=== PATIENT | female | born 1955 | race Caucasian/White ===

== ENCOUNTER 2018-05-21 16:08 | Emergency (ER) | payer OTHER ==
[2018-05-21] MEDS ORDERED: CYCLOBENZAPRINE HCL 10 MG TABLET (FP) PO ONE (16:16)
[2018-05-21] MEDS ORDERED: KETOROLAC TROMETHAMINE 60 MG/2 ML VIAL IM ONE (16:16)
[2018-05-21 16:19] VITALS: BP 115/82; PULSE 118; TEMP 97.8; BMI 21.8
[2018-05-21] MEDS ORDERED: CYCLOBENZAPRINE HCL 10 MG TABLET (FP) ONE (16:19)
[2018-05-21] MEDS ORDERED: KETOROLAC TROMETHAMINE 60 MG/2 ML VIAL ONE (16:19)
--- NOTE | 2018-05-21 16:24 | PDOC ---
History of Present Illness - General Chief Complaint: Back Pain Stated Complaint: SCIATICA Time Seen by Provider: 05/21/18 16:11 History Source: Patient Exam Limitations: No Limitations - History of Present Illness Initial Comments: 05/21/18 16:16 62 y/o female with piriformis issues presents with pain in the left buttocks that radiates down the left leg. This has been present for last 5 days. No fever or chills. No incontinence. No fall cohen trauma or lifting. Took Aleve that is not working. Patient states her sister came over to perform acupuncture for the pain. Worse with movement. No recent procedures. Patient denies dsyuria , discharge or weakness. Severity: moderate Past History - Past Medical History Allergies/Adverse Reactions: Allergies Allergy/AdvReac Type Severity Reaction Status Date / Time No Known Allergies Allergy Verified 05/21/18 16:14 Home Medications: Ambulatory Orders Alprazolam [Niravam] 0.5 mg PO PRN PRN 09/19/11 BUPROPion HCL "SR" [Wellbutrin Sr -] 200 mg PO DAILY 09/19/11 Valacyclovir HCl [Valtrex] 1,000 mg PO DAILY PRN 09/19/11 Cyclobenzaprine HCl [Flexeril 10 mg] 10 mg PO TID PRN #10 tablet 05/21/18 Ergocalciferol (Vitamin D2) [Vitamin D2] 50,000 unit PO ASDIR 05/21/18 Naproxen Sodium [Aleve] 440 mg PO BID PRN 05/21/18 Venlafaxine HCl ER [Effexor Xr -] 150 mg PO HS 05/21/18 Disorders: Yes (HERPES) Psychiatric Problems: Yes (ANXIETY) - Suicide/Smoking/Psychosocial Hx Smoking Status: No Smoking History: Never smoked Number of Cigarettes Smoked Daily: 0 Hx Alcohol Use: Yes ("3 glasses wine weekly") Review of Systems - Review of Systems Able to Perform ROS?: Yes Is the patient limited Kazakh proficient: No Constitutional: No: Chills, Fever Respiratory: No: Cough, Shortness of Breath Cardiac (ROS): No: Chest Pain : No: Burning, Discharge Musculoskeletal: Yes: Back Pain All Other Systems: Reviewed and Negative *Physical Exam - Physical Exam General Appearance: Yes: Nourished, Appropriately Dressed. No: Apparent Distress HEENT: positive: EOMI, DYANA, Normal ENT Inspection, Normal Voice, Symmetrical, Pharynx Normal Neck: positive: Trachea midline, Normal Thyroid, Supple. negative: Tender, Rigid Respiratory/Chest: positive: Lungs Clear, Normal Breath Sounds. negative: Chest Tender, Respiratory Distress Cardiovascular: positive: Regular Rhythm, Regular Rate, S1, S2. negative: Edema , JVD, Murmur Vascular Pulses: Femoral (R): 4+, Femoral (L): 4+, Carotid (R): 4+, Carotid (L) : 4+, Dorsalis-Pedis (R): 4+, Doralis-Pedis (L): 4+ Gastrointestinal/Abdominal: positive: Normal Bowel Sounds, Flat, Soft, Organomegaly. negative: Tender, Pulsatile Mass Lymphatic: negative: Adenopathy, Tenderness, Other Musculoskeletal: positive: Normal Inspection. negative: CVA Tenderness, Vertebral Tenderness Extremity: positive: Normal Capillary Refill, Normal Inspection, Normal Range of Motion, Other (tenderness to left piriformis muscle on palpation). negative : Swelling, Calf Tenderness Integumentary: positive: Normal Color, Dry, Warm Neurologic: positive: lapel padder II-XII NML intact, Fully Oriented, Alert, Normal Mood/ Affect, Normal Response, Motor Strength 5/5, Other (strength 5+/5 b/l i n UE and LE, no focal deficits noted, no SLR test b/l) ED Treatment Course - ADDITIONAL ORDERS Additional order review: 05/21/18 16:28 Pt given Toradol 60 mg IM and Flexeril 10 mg po in ER Pt will be discharged home Pt is in agreement with plan. 05/21/18 16:50 Pt is feeling better, ambulating and sitting better - RADIOLOGY Radiology Studies Ordered: 05/21/18 16:28 Pt is doing well, will place on Flexeril and NSAIDS If worsen return to ER *DC/Admit/Observation/Transfer Diagnosis at time of Disposition: Sciatica of left side - Discharge Dispostion Disposition: HOME Condition at time of disposition: Good Decision to Admit order: No - Referrals Referrals: Hannah Nascimento [Primary Care Provider] - - Patient Instructions Printed Discharge Instructions: DI for Sciatica Additional Instructions: Ice, Motrin, rest Flexeril 10 mg 3x/day as needed If worsen return to ER - Post Discharge Activity
== END 2018-05-21 16:54 | disposition home or self-care (01) ==
LOC: FER 16:08
PROC: 3E0233Z Introduction of Anti-inflammatory into Muscle, Percutaneous Approach (ICD-10-PCS; principal; 2018-05-21)
DX: M54.32 Sciatica, left side (principal); F41.9 Anxiety disorder, unspecified
CPT/HCPCS: 99282-25